=== PATIENT | female | born 1950 | race Caucasian/White ===

== ENCOUNTER 2022-05-03 11:25 | Inpatient (IN) | payer OTHER ==
[~2022-05-03] VITALS: Ht 162.6 cm; Wt 77.1 kg
[2022-05-03 11:29] VITALS: BP 136/82
--- NOTE | 2022-05-03 11:33 | NUR ---
BIBA BLS TO ER BED 7
[2022-05-03 12:10] LABS: BASOPHILS % (AUTO) 0.5 % (0.0-2.0); EOSINOPHILS # (AUTO) 0.1 K/uL (0-0.4); HEMOGLOBIN 14.3 g/dL (12.0-16.0); LYMPHOCYTES # (AUTO) 1.8 K/uL (2.5-16.5); MEAN CORPUSCULAR HEMOGLOBIN 30 pg (27-31); MEAN CORPUSCULAR HGB CONC 34 g/dL (33-37); MEAN CORPUSCULAR VOLUME 89.2 fL (80-94); MONOCYTES # (AUTO) 0.7 K/uL (0.8-1.0); MONOCYTES % (AUTO) 7.3 % (1.7-9.3); NEUTROPHILS # (AUTO) 7.3 K/uL (1.8-7.7); NEUTROPHILS % (AUTO) 73.2 % (42.2-75.2); PLATELET COUNT (AUTO) 226 K/uL (140-450); RED BLOOD CELL COUNT(AUTO) 4.71 MIL/uL (4.20-5.40); RED CELL DISTRIBUTION WIDTH 12.9 % (11.6-13.7)
[2022-05-03 12:34] LABS: ALBUMIN 3.8 g/dL (3.4-5.0); ANION GAP 11.2 (8-16); ASPARTATE AMINOTRANSFERASE 27 U/L (15-37); CARBON DIOXIDE 30.6 mmol/L (21-32); CHLORIDE 97 mmol/L (98-107); CREATININE 1.4 mg/dL (0.6-1.3); GFR ARICAN-AMERICAN 48 mL/min (>90); GLUCOSE 161 mg/dL (74-106); LIPASE 153 U/L (73-393); SODIUM SERUM 136 mmol/L (136-145); TOTAL BILIRUBIN 0.9 mg/dL (0.0-1.0); UREA NITROGEN, BLOOD 27 mg/dL (7-18)
[2022-05-03 12:45] LABS: POTASSIUM 2.8 mmol/L (3.5-5.1)
[2022-05-03 12:53] LABS: APPEARANCE,URINE HAZY (CLEAR); BILIRUBIN,URINE NEGATIVE (NEGATIVE); BLOOD, URINE NEGATIVE (NEGATIVE); COLOR,URINE YELLOW (YELLOW); LEUKOCYTE ESTERASE ,URINE TRACE (NEGATIVE); NITRITE, URINE NEGATIVE (NEGATIVE); UGLUCOSE NEGATIVE (NEGATIVE)
[2022-05-03] MEDS ORDERED: NACL 0.9% 1,000 ML IV ONE ×2 (13:00→13:40)
[2022-05-03] MEDS ORDERED: POTASSIUM CHLORIDE 10 MEQ TABER PO ONE ×2 (13:00)
[2022-05-03 13:02] LABS: RBC,URINE 0-5 /HPF (0-5); WBC,URINE 0-5 /HPF (0-5)
--- NOTE | 2022-05-03 13:13 | NUR ---
Pt taken to CT via rjr.
[2022-05-03] MEDS ORDERED: ATOR20TA40 PO (15:05)
[2022-05-03] MEDS ORDERED: CITA20TA15 PO (15:05)
[2022-05-03] MEDS ORDERED: AMLO5TAB PO (15:05)
[2022-05-03] MEDS ORDERED: SEMA2PEN SQ (15:15)
[2022-05-03] MEDS ORDERED: HYDR-4004 PO (15:15)
[2022-05-03] MEDS ORDERED: PRED10TA5 PO (15:15)
[2022-05-03] MEDS ORDERED: LOSA100T2 PO (15:15)
[2022-05-03] MEDS ORDERED: ESK300 PO (15:15)
[2022-05-03] MEDS ORDERED: METF-346 PO (15:15)
--- NOTE | 2022-05-03 16:43 | NUR ---
RECEIVED PT CARE AND REPORT FROM DANNY ER NURSE. PT WAS BROUGHT VIA GURNEY ACCOMPANIED BY DANNY AND TRACK SUPERVISOR. PT IS RESTING WITH OU CLOSED. DANNY STATED THAT PATIENT IS A&OX4, AMBULATORY WITH ASSIST. NO VISIBLE S/S OF DISTRESS, DISCOMFORT, PAIN OR SOB. PT PLACED IN BED AND TELE MONITOR PLACED WHILE I WAS NOT PRESENT. 174 PT FOUND IN HALLWAY STATING THAT SHE IS DIZZY. LAURIE AGUILAR ASSISTING PATIENT. PT APPEARS TO BE ALTERED BUT CALM. STATED THAT SHE IS DIZZY AND WANTS TO USE THE RESTROOM. A&OX2. PT GUIDED BACK TO ROOM AND ORIENTED TO RESTROOM AND CALL LIGHT. BEGAN ADMISSION PROCESS AND ORIENTED PATIENT TO ROOM. PT IS CALM AND COOPERATIVE AT THIS TIME. WILL CONTINUE TO MONITOR. BED ALARM SET.
--- NOTE | 2022-05-03 16:45 | NUR ---
Report given to receiving RN. VSS. Pt aware and agreeable to admission. Pt transported with belongings via gurney.
[2022-05-03 18:03] VITALS: BP 127/83
--- NOTE | 2022-05-03 18:42 | NUR ---
PT MOVED TABLE WITH DINNER TRAY TO HALLWAY. ESCORTED PATIENT BACK TO ROOM. PT STATED THAT SMELL OF FOOD MADE HER NAUSEOUS. REINFORCED CALL LIGHT USE WITH PATIENT FOR ANY NEEDS. CALL LIGHT LEFT WITHIN REACH OF PATIENT. EMESIS BAG PROVIDED FOR PATIENT. BED ALARM DID NOT GO OFF. TURNED ON ALARM AGAIN. PT IS RESTING WITH EYES CLOSED WITH NO S/S OF DISTRESS, DISCOMFORT, PAIN OR SOB. WILL CONTINUE TO MONITOR. WILL ENDORSE TO NOC SHIFT.
--- NOTE | 2022-05-03 19:15 | NUR ---
RECEIVED REPORT FROM DAY SHIFT RN FOR CONTINUITY OF CARE. PT IS CURRENTLY RESTING IN BED. NOT IN ANY DISTRESS. EDUCATED PT TO USE CALL LIGHT SYSTEM FOR ANY ASSISTANCE. POC DISCUSSED. WILL CONTINUE TO MONITOR THE PT.
[2022-05-04] VITALS: BP 140/81
[2022-05-04] MEDS ORDERED: ONDANSETRON 4 MG TAB PO PRN (01:10)
[2022-05-04] MEDS ORDERED: ONDANSETRON 4 MG TAB ONE (01:26)
--- NOTE | 2022-05-04 03:32 | NUR ---
OBSERVED PT. PT IS SLEEPING COMFORTABLY IN BED. PT NOT IN ANY DISTRESS. BREATHING EVEN AND UNLABORED. WILL CONTINUE TO MONITOR THE PT.
[2022-05-04 04:00] VITALS: BP 156/85
--- NOTE | 2022-05-04 05:33 | NUR ---
PT PULLED OUT IV. NEW IV INSERTED ON LEFT HAND 24 GAUGE. EDUCATED PT TO NOT TO PULL OUT IV AND TO TAKE CARE OF IT.
[2022-05-04 06:08] LABS: BASOPHILS # (AUTO) 0.1 K/uL (0.00-0.22); BASOPHILS % (AUTO) 0.7 % (0.0-2.0); EOSINOPHILS # (AUTO) 0.2 K/uL (0-0.4); EOSINOPHILS % (AUTO) 2.1 % (0.0-4.0); HEMOGLOBIN 14.1 g/dL (12.0-16.0); LYMPHOCYTES # (AUTO) 2.6 K/uL (2.5-16.5); LYMPHOCYTES % (AUTO) 23.6 % (20.5-51.1); MEAN CORPUSCULAR HEMOGLOBIN 30 pg (27-31); MEAN CORPUSCULAR HGB CONC 34 g/dL (33-37); MEAN CORPUSCULAR VOLUME 88.5 fL (80-94); MONOCYTES # (AUTO) 0.9 K/uL (0.8-1.0); MONOCYTES % (AUTO) 8.4 % (1.7-9.3); NEUTROPHILS # (AUTO) 7.2 K/uL (1.8-7.7); NEUTROPHILS % (AUTO) 65.2 % (42.2-75.2); PLATELET COUNT (AUTO) 231 K/uL (140-450); RED BLOOD CELL COUNT(AUTO) 4.75 MIL/uL (4.20-5.40); RED CELL DISTRIBUTION WIDTH 13.2 % (11.6-13.7); WHITE BLOOD COUNT (AUTO) 11.1 K/uL (4.8-10.8)
[2022-05-04 06:22] LABS: ANION GAP 12.8 (8-16); CARBON DIOXIDE 28.1 mmol/L (21-32); CREATININE 1.1 mg/dL (0.6-1.3)
[2022-05-04 06:30] LABS: POTASSIUM 2.9 mmol/L (3.5-5.1)
--- NOTE | 2022-05-04 07:13 | NUR ---
ENDORSED PT TO DAY SHIFT RN FOR CONTINUITY OF CARE. PT IS STABLE.
--- NOTE | 2022-05-04 07:19 | NUR ---
RECEIVED REPORT FROM DEVICE TEST ENGINEER NURSE FOR CONTINUITY OF CARE, PT SITTING UP ON SIDE OF THE BED WITH NO S/S OF DISTRESS. NO COMPLAINTS AT THIS TIME, CALL LIGHT WITHIN REACH. ALL SAFETY MEASURES IN PLACE.
[2022-05-04] MEDS ORDERED: POTASSIUM CHLORIDE 10 MEQ TABER PO SCH (07:34)
--- NOTE | 2022-05-04 07:35 | NUR ---
RECEIVED TORB FROM DR DOWNS FOR POTASSIUM LEVEL OF 2.9, FILM PROJECTOR OPERATOR RN, RIKKI, NOTIFIED OF CRITICAL AT 0634.
[2022-05-04 08:00] VITALS: BP 127/61
[2022-05-04] MEDS: KCL 20 MEQ IN 100 mL PREMIX 200 ML IV SCH ×2 (08:26→11:57)
[2022-05-04] MEDS ORDERED: DEXTROSE 50% 50 ML SYR IVP PRN ×2 (08:30→10:20)
--- NOTE | 2022-05-04 08:48 | NUR ---
PATIENT HAS BEEN SCREENED AND CATEGORIZED HIGH NUTRITION RISK. PATIENT WILL BE SEEN WITHIN 1-2 DAYS OF ADMISSION. 05/04/ [facility] REFERRAL RECEIVED FOR "VOMITING >3 DAYS" ON 05/04/22. REVIEWED BY SARIKA YOUNG RD
[2022-05-04] MEDS ORDERED: ACETAMINOPHEN 325 MG TAB PO PRN (10:20)
[2022-05-04] MEDS ORDERED: INSULIN LISPRO SLIDING SCALE 100 UNITS/ML VIAL SUBQ PRN (10:20)
[2022-05-04] MEDS ORDERED: HYDROcodone/APAP 7.5/325 MG 1 TAB PO PRN (10:20)
[2022-05-04] MEDS ORDERED: ONDANSETRON 4 MG/2 ML VIAL IVP PRN (10:20)
[2022-05-04] MEDS: NACL 0.9% 1,000 ML IV SCH (10:34)
[2022-05-04] MEDS ORDERED: BLOOD GLUCOSE MONITORING 1 DEV DEV FS SCH (11:30)
[2022-05-04] MEDS: BLOOD GLUCOSE MONITORING 1 DEV DEV FS SCH ×3 (11:54→20:34)
[2022-05-04 12:00] VITALS: BP 110/79
[2022-05-04 12:06] LABS: BASOPHILS % (AUTO) 0.5 % (0.0-2.0); EOSINOPHILS # (AUTO) 0.2 K/uL (0-0.4); EOSINOPHILS % (AUTO) 2.1 % (0.0-4.0); HEMATOCRIT 41.1 % (36-48); HEMOGLOBIN 13.6 g/dL (12.0-16.0); LYMPHOCYTES # (AUTO) 1.6 K/uL (2.5-16.5); LYMPHOCYTES % (AUTO) 18.5 % (20.5-51.1); MEAN CORPUSCULAR HEMOGLOBIN 30 pg (27-31); MEAN CORPUSCULAR HGB CONC 33 g/dL (33-37); MEAN CORPUSCULAR VOLUME 89.6 fL (80-94); MONOCYTES # (AUTO) 0.8 K/uL (0.8-1.0); MONOCYTES % (AUTO) 8.8 % (1.7-9.3); NEUTROPHILS # (AUTO) 6.2 K/uL (1.8-7.7); NEUTROPHILS % (AUTO) 70.1 % (42.2-75.2); PLATELET COUNT (AUTO) 216 K/uL (140-450); RED BLOOD CELL COUNT(AUTO) 4.58 MIL/uL (4.20-5.40); WHITE BLOOD COUNT (AUTO) 8.9 K/uL (4.8-10.8)
[2022-05-04 12:29] LABS: ANION GAP 12.3 (8-16); CARBON DIOXIDE 30.1 mmol/L (21-32); CREATININE 1.1 mg/dL (0.6-1.3); POTASSIUM 3.4 mmol/L (3.5-5.1)
[2022-05-04 12:30] LABS: PROTHROMBIN TIME 10.7 secs (10.8-13.4)
[2022-05-04 12:36] LABS: CHOL/HDL RATIO 1.8 (1-4.5); FREE T4 (FREE THYROXINE) 0.98 ng/dL (0.76-1.46); MAGNESIUM 1.8 mg/dL (1.8-2.4); PHOSPHORUS 2.8 mg/dL (2.5-4.9); THYROID STIMULATING HORMONE 3.31 uIU/mL (0.34-3.74)
--- NOTE | 2022-05-04 15:55 | NUR ---
REITERATED IMPORTANCE OF COLLECTION OF A URINE SAMPLE. SAMPLE CUP IN THE BATHROOM. MEAT SOAKER ALSO AWARE
[2022-05-04 16:00] VITALS: BP 130/64
--- NOTE | 2022-05-04 16:47 | NUR ---
05/04/22 RD INITIAL ASSESSMENT COMPLETED PLEASE REFER TO NUTRITION ASSESSMENT UNDER CARE ACTIVITY FOR ESTIMATED NUTRITIONAL NEEDS. 1. CONTINUE [id number] DIET TOLERATED 2. PROVIDED NUTRITION EDUCATION WITH HANDOUTS FOR DM 3. RD TO FOLLOW-UP 7 DAYS, LOW RISK REVIEWED BY SARIKA YOUNG RD
[2022-05-04] MEDS: metFORMIN 500 MG TAB PO SCH (17:32)
--- NOTE | 2022-05-04 18:02 | NUR ---
CALLED [facility] REGARDING PTS REQUEST FOR DIET SPRITE FOR NAUSEA AT DINNER.
--- NOTE | 2022-05-04 18:43 | NUR ---
ALL NEEDS HAVE BEEN MET THROUGHOUT THE SHIFT.
--- NOTE | 2022-05-04 19:30 | NUR ---
RECEIVED REPORT FROM DAY SHIFT RN FOR CONTINUITY OF CARE. PT IS AWAKE AND ALERT. PT NOT IN ANY DISTRESS. RESTING IN BED. POC DISCUSSED. WILL CONTINUE TO MONITOR THE PT.
[2022-05-04 20:00] VITALS: BP 126/67
[2022-05-04] MEDS: DOCUSATE SODIUM 100 MG GELCAP PO SCH (20:34)
--- NOTE | 2022-05-04 22:30 | NUR ---
PT ACCIDENTLY PULLED IV OUT. CATHETER INTACT. PT REFUSES A NEW IV INSERTION AND WANTS TO WAIT UNTIL MORNING. ALSO, PT PULLED OUT ID BAND FROM WRIST. STATES IT IS BOTHERING HER.
[2022-05-04 23:44] LABS: BARBITURATE, URINE NEGATIVE ng/ml (NEG <=200); BENZODIAZEPINE, URINE NEGATIVE ng/mL (NEG <=200); CANNABINOID, URINE NEGATIVE ng/mL (NEG <=50); COCAINE, URINE NEGATIVE ng/mL (NEG <=300); OPIATE, URINE NEGATIVE ng/mL (NEG <=2000); PHENCYCLIDINE SCREEN,URINE NEGATIVE ng/mL (NEG <=25)
[2022-05-05] VITALS: BP 117/65
--- NOTE | 2022-05-05 00:25 | NUR ---
PT IS SLEEPING COMFORTABLY IN BED. NOT IN ANY DISTRESS. BREATHING EVEN AND UNLABORED. WILL CONTINUE TO MONITOR THE PT.
[2022-05-05 04:00] VITALS: BP 140/76
--- NOTE | 2022-05-05 04:00 | NUR ---
PT STILL REFUSING FOR NEW IV. PT WANTS IT TO BE DONE LATER IN THE DAY.
[2022-05-05 06:05] LABS: BASOPHILS # (AUTO) 0.1 K/uL (0.00-0.22); BASOPHILS % (AUTO) 0.7 % (0.0-2.0); EOSINOPHILS # (AUTO) 0.3 K/uL (0-0.4); EOSINOPHILS % (AUTO) 2.7 % (0.0-4.0); HEMATOCRIT 40.8 % (36-48); HEMOGLOBIN 13.4 g/dL (12.0-16.0); LYMPHOCYTES % (AUTO) 21.2 % (20.5-51.1); MEAN CORPUSCULAR HEMOGLOBIN 30 pg (27-31); MEAN CORPUSCULAR HGB CONC 33 g/dL (33-37); MONOCYTES # (AUTO) 0.9 K/uL (0.8-1.0); MONOCYTES % (AUTO) 9.1 % (1.7-9.3); NEUTROPHILS # (AUTO) 6.2 K/uL (1.8-7.7); NEUTROPHILS % (AUTO) 66.3 % (42.2-75.2); PLATELET COUNT (AUTO) 212 K/uL (140-450); RED BLOOD CELL COUNT(AUTO) 4.54 MIL/uL (4.20-5.40); WHITE BLOOD COUNT (AUTO) 9.4 K/uL (4.8-10.8)
[2022-05-05] MEDS: NACL 0.9% 1,000 ML IV SCH (06:20)
[2022-05-05 06:30] LABS: ANION GAP 9.7 (8-16); CARBON DIOXIDE 31.9 mmol/L (21-32); CREATININE 1.1 mg/dL (0.6-1.3); POTASSIUM 3.6 mmol/L (3.5-5.1)
[2022-05-05 06:54] LABS: MAGNESIUM 1.8 mg/dL (1.8-2.4); PHOSPHORUS 2.5 mg/dL (2.5-4.9)
--- NOTE | 2022-05-05 07:10 | NUR ---
RECEIVED REPORT FROM SENIOR RESERVATIONS AGENT NURSE FOR CONTINUITY OF CARE. PT WAS ASLEEP AND STABLE.
--- NOTE | 2022-05-05 07:10 | NUR ---
ENDORSED PT TO DAY SHIFT RN FOR CONTINUITY OF CARE. PT IS STABLE.
[2022-05-05 08:00] VITALS: BP 145/70
[2022-05-05] MEDS: BLOOD GLUCOSE MONITORING 1 DEV DEV FS SCH ×4 (08:04→20:47)
[2022-05-05] MEDS: metFORMIN 500 MG TAB PO SCH ×2 (08:07→17:00)
[2022-05-05] MEDS ORDERED: LITHIUM CARBONATE 300 MG TAB PO SCH (09:00)
[2022-05-05] MEDS: PANTOPRAZOLE 40 MG INJ VIAL IVP SCH (09:00)
[2022-05-05] MEDS: CITALOPRAM 20 MG TAB PO SCH (09:41)
[2022-05-05] MEDS: LOSARTAN 50 MG TAB PO SCH (09:42)
[2022-05-05] MEDS: amLODIPine 5 MG TAB PO SCH (09:42)
[2022-05-05] MEDS: ATORVASTATIN 20 MG TAB PO SCH (09:42)
[2022-05-05] MEDS: hydroCHLOROthiazide 25 MG TAB PO SCH (09:42)
[2022-05-05] MEDS: DOCUSATE SODIUM 100 MG GELCAP PO SCH ×2 (09:42→20:46)
--- NOTE | 2022-05-05 11:23 | NUR ---
SCREEN FOR LOW RBUNA SCALE AT RISK, CONTINUE TO FOLLOW PRESSURE ULCER PREVENTION INTERVENTIONS. -TURN AND REPOSITION PATIENT Q 2H, ASSIST IF NEEDED -ASSESS AND MONITOR SKIN CONDITION DURING POSITION CHANGES -OFFLOAD BILATERAL HEELS BY PLACING PILLOWS UNDER CALVES AT ALL TIMES, UNLESS OTHERWISE CONTRAINDICATED -PRESSURE REDISTRIBUTION BY PLACING PILLOWS AND OFFLOADING SACRALCOCCYX -KEEP SKIN CLEAN AND DRY AT ALL TIMES.
[2022-05-05 12:00] VITALS: BP 113/85
--- NOTE | 2022-05-05 14:04 | NUR ---
P.T. NOTES P.T. EVAL COMPLETED; REFER TO EVAL FOR DETAILS.
[2022-05-05 16:00] VITALS: BP 110/60
--- NOTE | 2022-05-05 19:20 | NUR ---
PATIENT SEEN LYING IN BED ASLEEP. ENDORSED PATIENT TO PM NURSE FOR CONTINUITY OF CARE.
--- NOTE | 2022-05-05 19:30 | NUR ---
RECEIVED REPORT FROM DAY SHIFT RN. PT IS AWAKE AND ALERT. NOT IN ANY DISTRESS. PT CURRENTLY HAS NO IV. POC DISCUSSED. WILL CONTINUE TO MONITOR THE PT.
[2022-05-05 20:00] VITALS: BP 129/75
[2022-05-05] MEDS: INSULIN LISPRO SLIDING SCALE 100 UNITS/ML VIAL SUBQ PRN (20:47)
--- NOTE | 2022-05-05 22:00 | NUR ---
NEW IV INSERTED ON LEFT HAND 24 GAUGE. IVF RUNNING PER MD ORDER.
[2022-05-06] VITALS: BP 113/67
--- NOTE | 2022-05-06 | NUR ---
PT WANTED TO TAKE OFF IVF TO USE RESTROOM. PT REFUSED TO HAVE IT CONNECTED AGAIN.
[2022-05-06] MEDS: NACL 0.9% 1,000 ML IV SCH ×2 (02:20→22:20)
[2022-05-06 04:00] VITALS: BP 140/72
--- NOTE | 2022-05-06 04:30 | NUR ---
PT IS SLEEPING COMFORTABLY IN BED. PT NOT IN ANY DISTRESS. BREATHING EVEN AND UNLABORED. WILL CONTINUE TO MONITOR THE PT.
[2022-05-06] MEDS: BLOOD GLUCOSE MONITORING 1 DEV DEV FS SCH ×4 (06:43→21:55)
--- NOTE | 2022-05-06 07:12 | NUR ---
ENDORSED PT TO DAY SHIFT RN FOR CONTINUITY OF CARE. PT IS STABLE.
[2022-05-06 08:00] VITALS: BP 113/67
[2022-05-06] MEDS: metFORMIN 500 MG TAB PO SCH ×2 (08:00→17:00)
[2022-05-06 08:48] LABS: BASOPHILS # (AUTO) 0.1 K/uL (0.00-0.22); BASOPHILS % (AUTO) 0.6 % (0.0-2.0); EOSINOPHILS # (AUTO) 0.2 K/uL (0-0.4); EOSINOPHILS % (AUTO) 2.8 % (0.0-4.0); HEMATOCRIT 41.7 % (36-48); HEMOGLOBIN 13.8 g/dL (12.0-16.0); LYMPHOCYTES # (AUTO) 2.1 K/uL (2.5-16.5); LYMPHOCYTES % (AUTO) 23.7 % (20.5-51.1); MEAN CORPUSCULAR HEMOGLOBIN 30 pg (27-31); MEAN CORPUSCULAR HGB CONC 33 g/dL (33-37); MEAN CORPUSCULAR VOLUME 89.2 fL (80-94); MONOCYTES # (AUTO) 0.7 K/uL (0.8-1.0); MONOCYTES % (AUTO) 7.6 % (1.7-9.3); NEUTROPHILS # (AUTO) 5.7 K/uL (1.8-7.7); NEUTROPHILS % (AUTO) 65.3 % (42.2-75.2); PLATELET COUNT (AUTO) 218 K/uL (140-450); RED BLOOD CELL COUNT(AUTO) 4.67 MIL/uL (4.20-5.40); WHITE BLOOD COUNT (AUTO) 8.7 K/uL (4.8-10.8)
[2022-05-06 08:51] LABS: MAGNESIUM 1.8 mg/dL (1.8-2.4); PHOSPHORUS 2.6 mg/dL (2.5-4.9)
[2022-05-06 09:07] LABS: ANION GAP 12.4 (8-16); CARBON DIOXIDE 28.6 mmol/L (21-32); CREATININE 1.1 mg/dL (0.6-1.3)
[2022-05-06] MEDS: PANTOPRAZOLE 40 MG INJ VIAL IVP SCH (09:36)
[2022-05-06] MEDS: DOCUSATE SODIUM 100 MG GELCAP PO SCH ×2 (09:42→21:57)
[2022-05-06] MEDS: CITALOPRAM 20 MG TAB PO SCH (09:42)
[2022-05-06] MEDS: LOSARTAN 50 MG TAB PO SCH (09:44)
[2022-05-06] MEDS: ATORVASTATIN 20 MG TAB PO SCH (09:46)
[2022-05-06] MEDS: amLODIPine 5 MG TAB PO SCH (09:48)
[2022-05-06] MEDS: hydroCHLOROthiazide 25 MG TAB PO SCH (09:49)
[2022-05-06 12:00] VITALS: BP 113/85
[2022-05-06 16:00] VITALS: BP 110/60
[2022-05-06] MEDS ORDERED: KCL 20 MEQ IN 100 mL PREMIX 200 ML IV ONE (18:30)
--- NOTE | 2022-05-06 19:18 | NUR ---
RECSABINOVED PT FROM RENATE RICHARDS - PT NO IV SITE . Addendum: 05/07/22 at 0334 by Janny Rock RN AT 1917 - REVIEWED THE EMAR - THER IS PENDING Margarito AYALA - WILL RE INSERT THE IV NEEDLE .
[2022-05-06 20:00] VITALS: BP 128/80
--- NOTE | 2022-05-06 20:00 | NUR ---
TRIED TO RE INSERT THE IV NEEDLE - AFTER 2 ATTEMPT ON LEFT AND RIGHT HAND - IT FAILED - WILL TRY AGAIN LATTER .
--- NOTE | 2022-05-06 22:00 | NUR ---
VASU DUNCAN TRIED RE INSERT THE NEW IV NEEDLE , BUT AFTER 2 ATTEMPT - FAILED , WILL TRY AGAIN Addendum: 05/07/22 at 0340 by Janny Rock RN [id number] IV NEEDLE INSERTED BY VASU MEYER , MIN. BLEEDING , PROCEDURE TOLERATED BY PT . WILL CONT. TO MONITOR
[2022-05-07] VITALS: BP 124/75
[2022-05-07] MEDS ORDERED: LORazepam 2 MG/ML VIAL IVP PRN
--- NOTE | 2022-05-07 00:40 | NUR ---
PT KEEPS TELLING HER SON KICK HER OUT FROM THE HOUSE , PT REQUESTING MEDICINE THAT WILL MAKES HER TO RELAX . - WILL REFER TO DR. DOWNS
[2022-05-07 04:00] VITALS: BP 112/60
--- NOTE | 2022-05-07 04:30 | NUR ---
ROUNDS , FOUND PT'S IV NEEDLE OUT , WHEN I ASKING PT HER IV NEEDLE IS OUT AND NEEDS TO RE INSERT AGAIN , SHE SAID YES I PULL IT OUT , THEN REMINDS HER FOR IV REINSERTION - SHE SAID I DONT LIKE IT ANYMORE , I DONT LIKE ANY NEEDLE POKE ANYMORE ITS HURT . - WILL ENDORSE Addendum: 05/07/22 at 1441 by Janny Rock RN AT 4:30 AM INFORM CHARGE NURSE PT IS REFUSED IV RE INSERTION .
[2022-05-07] MEDS: BLOOD GLUCOSE MONITORING 1 DEV DEV FS SCH ×4 (06:17→20:09)
--- NOTE | 2022-05-07 06:40 | NUR ---
encourages the pt for re insertion again she is not much drink and ate - pt agree at this time .
--- NOTE | 2022-05-07 06:43 | NUR ---
ASSISTING PT TO THE REST ROOM , VOIDED FREELY , CHANGED GOWN AND NEW UNDERWEAR , PT REQUESTING SHOWER AFTER BREAKFAST - WILL ENDORSE
--- NOTE | 2022-05-07 06:45 | NUR ---
when i inserting the iv the pt . suddenly pull out the hand , and she said stop and she dont like it anymore . then she said let other try latter . - will endorse .
--- NOTE | 2022-05-07 06:50 | NUR ---
REFUSED SHAY;OG - SHE SAID I DON'T LIKE IT .- WILL ENDORSE - GOMEZ 158 Addendum: 05/07/22 at 0651 by Janny Rock RN THE WORD BECKI;LOG IN THE ABOVE NURSE'S NOTE IS AN ERROR ENTRY , INSTEAD OF HUMALOG
--- NOTE | 2022-05-07 07:50 | NUR ---
endorsed pt for cont. of care , i endorsed to analy gabriel pt is no iv site because when changed her mind on the time inserting it , and she expressed to me she don't like it anymore .
[2022-05-07 08:01] LABS: BASOPHILS % (AUTO) 0.5 % (0.0-2.0); EOSINOPHILS # (AUTO) 0.2 K/uL (0-0.4); EOSINOPHILS % (AUTO) 2.6 % (0.0-4.0); HEMATOCRIT 41.3 % (36-48); HEMOGLOBIN 13.8 g/dL (12.0-16.0); LYMPHOCYTES # (AUTO) 2.2 K/uL (2.5-16.5); LYMPHOCYTES % (AUTO) 24.8 % (20.5-51.1); MEAN CORPUSCULAR HEMOGLOBIN 30 pg (27-31); MEAN CORPUSCULAR HGB CONC 33 g/dL (33-37); MEAN CORPUSCULAR VOLUME 89.3 fL (80-94); MONOCYTES # (AUTO) 0.7 K/uL (0.8-1.0); MONOCYTES % (AUTO) 8.1 % (1.7-9.3); NEUTROPHILS # (AUTO) 5.7 K/uL (1.8-7.7); PLATELET COUNT (AUTO) 217 K/uL (140-450); RED BLOOD CELL COUNT(AUTO) 4.62 MIL/uL (4.20-5.40); RED CELL DISTRIBUTION WIDTH 12.9 % (11.6-13.7); WHITE BLOOD COUNT (AUTO) 8.9 K/uL (4.8-10.8)
[2022-05-07 08:15] LABS: ANION GAP 10.9 (8-16); CARBON DIOXIDE 29.4 mmol/L (21-32); CREATININE 1.2 mg/dL (0.6-1.3); POTASSIUM 3.3 mmol/L (3.5-5.1)
[2022-05-07 08:32] LABS: MAGNESIUM 1.8 mg/dL (1.8-2.4); PHOSPHORUS 2.7 mg/dL (2.5-4.9)
[2022-05-07 09:25] VITALS: BP 127/60
[2022-05-07] MEDS: PANTOPRAZOLE 40 MG INJ VIAL IVP SCH (09:25)
[2022-05-07] MEDS: DOCUSATE SODIUM 100 MG GELCAP PO SCH ×2 (09:28→20:12)
[2022-05-07] MEDS: metFORMIN 500 MG TAB PO SCH ×2 (09:29→17:21)
[2022-05-07] MEDS: ATORVASTATIN 20 MG TAB PO SCH (09:29)
[2022-05-07] MEDS: amLODIPine 5 MG TAB PO SCH (09:29)
[2022-05-07] MEDS: CITALOPRAM 20 MG TAB PO SCH (09:29)
[2022-05-07] MEDS: LOSARTAN 50 MG TAB PO SCH (09:29)
[2022-05-07] MEDS: hydroCHLOROthiazide 25 MG TAB PO SCH (09:30)
[2022-05-07] MEDS: INSULIN LISPRO SLIDING SCALE 100 UNITS/ML VIAL SUBQ PRN ×2 (11:56→17:19)
[2022-05-07 11:57] VITALS: BP 132/78
--- NOTE | 2022-05-07 14:42 | NUR ---
RECEIVED ORDER TO START THE PROCESS FOR SNF PLACEMENT FOR PT. FAXED SNF PACKET TO CONTRACTED FACILITIES: [facility] AND [facility]. WILL FOLLOW UP WITH ACCEPTING FACILITIES. Addendum: 05/07/22 at 1608 by SALTY HOLGUIN CM FAXED TO THREE MORE FACILITIES: [employer], [facility] [employer] [facility], [facility]. [facility] DENIED PATIENT. WILL FOLLOW UP WITH ACCEPTING AND DECLINING FACILITIES. Addendum: 05/08/22 at 1355 by Belkis Cobb CM 1110: REACHED OUT TO [facility] AT [phone] FOR ADMISSION CONSIDERATION. [facility] STATED TO SEND OVER CLINICALS FOR THEM TO REVIEW. INQUIRY SENT. [id number]: RECEIVED A CALL BACK FROM [facility] STATING THAT THEY ARE ABLE TO ACCEPT THE PATIENT. PATIENT CAN GO TO ROOM [address] UNDER DR. LOVE. [facility] IS REQUESTING [facility] FROM [facility]. LEFT MESSAGE TO MARLIN CLOUD AT [facility] [phone]. WILL FOLLOW UP. Addendum: 05/08/22 at 1507 by SALTY HOLGUIN CM PT WAS ACCEPTED AT [facility] LOCATED AT [address] [address]. PATIENT WILL WE GOING TO ROOM [address] UNDER DR LOVE. TRANSPORTATION SET UP WITH [facility] [phone] WITH A GUSSET RIPPER TIME BETWEEN [phone]. HOSPITAL WILL BE BILLED FOR THIS TRANSPORTATION. NURSE CHAVEZ AND SON YORDAN AWARE OF THE ABOVE INFORMATION.
[2022-05-07] MEDS: NACL 0.9% 1,000 ML IV SCH (18:20)
--- NOTE | 2022-05-07 19:32 | NUR ---
RECEIVED REPORT FROM DAY SHIFT NURSE FOR CONTINUITY OF CARE. PT IS AWAKE, ALERT AND ORIENTED X3. WAS FOUND ROAMING THE HALLWAY LOOKING FOR THE BATHROOM. REORIENTED PT TO BEDROOM AND BATHROOM. PT IS ON ROOM AIR WITH NO SIGNS OF DISTRESS NOTED. PT HAS STATED NO PAIN AT THIS TIME. SKIN IS INTACT. NO IV SITE PRESENT. PT STATES SHE DOES NOT ONE ANOTHER ONE INSERTED. SAFETY MEASURES IN PLACE, WILL MONITOR CLOSELY.
[2022-05-07 20:00] VITALS: BP 142/87
--- NOTE | 2022-05-07 20:00 | NUR ---
Patient's Plan of Care was discussed and reviewed with UNIT CONTROLLER: PRABHA ELLISON
[2022-05-07] MEDS ORDERED: MELATONIN 3 MG TAB PO PRN (21:15)
--- NOTE | 2022-05-07 22:26 | NUR ---
PT HAVING DIFFICULTY SLEEPING. MASH PROCESSING OPERATOR DR WAS CONTACTED, ORDER FOR MELATONIN 9MG WAS PLACED AND ADMINISTERED WITH NO COMPLICATIONS. WILL CONTINUE TO MONITOR.
[2022-05-07] MEDS ORDERED: LORazepam 0.5 MG TAB PO PRN (22:35)
--- NOTE | 2022-05-07 23:04 | NUR ---
PT HAS BECOME VERY AGITATED AND ANXIOUS DUE TO NOT BEING ABLE TO SLEEP. STILL REFUSING ANY IV INSERTION AND HAS REFUSED ATIVAN IM. DR WAS CONTACTED AND AN ORDER FOR ATIVAN 0.5 MG PO WAS PLACED AND ADMINISTERED. WILL CONTINUE CLOSELY MONITORING THE PT.
[2022-05-08] VITALS: BP 119/69
--- NOTE | 2022-05-08 02:07 | NUR ---
PT STILL RESTLESS. GETTING OUT OF BED MULTIPLE TIMES ATTEMPTING TO WALK THE HALLWAYS. SHE HAS STATED SHE DOES NOT WANT THE TELE MONITOR CONNECTED TO HER ANYMORE. PT REMOVED NURSERY WORKER AND IS REFUSING IT BE PUT BACK ON. WILL CONTINUE TO MONITOR.
[2022-05-08 04:00] VITALS: BP 111/65
--- NOTE | 2022-05-08 06:23 | NUR ---
PT IN AND OUT OF SLEEP DURING NIGHT. POSSIBLE DC TO SNF TODAY. WILL ENDORSE TO DAY SHIFT NURSE. PT STABLE AT THIS TIME.
[2022-05-08] MEDS: BLOOD GLUCOSE MONITORING 1 DEV DEV FS SCH ×2 (07:04→11:52)
[2022-05-08 07:21] LABS: BASOPHILS # (AUTO) 0.1 K/uL (0.00-0.22); BASOPHILS % (AUTO) 0.7 % (0.0-2.0); EOSINOPHILS # (AUTO) 0.3 K/uL (0-0.4); EOSINOPHILS % (AUTO) 3.1 % (0.0-4.0); HEMATOCRIT 40.1 % (36-48); HEMOGLOBIN 13.6 g/dL (12.0-16.0); LYMPHOCYTES # (AUTO) 2.2 K/uL (2.5-16.5); LYMPHOCYTES % (AUTO) 25.9 % (20.5-51.1); MEAN CORPUSCULAR HEMOGLOBIN 30 pg (27-31); MEAN CORPUSCULAR HGB CONC 34 g/dL (33-37); MEAN CORPUSCULAR VOLUME 88.1 fL (80-94); MONOCYTES # (AUTO) 0.8 K/uL (0.8-1.0); MONOCYTES % (AUTO) 9.6 % (1.7-9.3); NEUTROPHILS # (AUTO) 5.2 K/uL (1.8-7.7); NEUTROPHILS % (AUTO) 60.7 % (42.2-75.2); PLATELET COUNT (AUTO) 219 K/uL (140-450); RED BLOOD CELL COUNT(AUTO) 4.55 MIL/uL (4.20-5.40); RED CELL DISTRIBUTION WIDTH 12.9 % (11.6-13.7); WHITE BLOOD COUNT (AUTO) 8.6 K/uL (4.8-10.8)
[2022-05-08 07:32] LABS: ANION GAP 11.9 (8-16); CARBON DIOXIDE 29.1 mmol/L (21-32); CREATININE 1.2 mg/dL (0.6-1.3)
[2022-05-08 07:43] LABS: MAGNESIUM 1.6 mg/dL (1.8-2.4); PHOSPHORUS 3.2 mg/dL (2.5-4.9)
[2022-05-08 08:00] VITALS: BP 147/78
[2022-05-08] MEDS: metFORMIN 500 MG TAB PO SCH (08:22)
[2022-05-08] MEDS ORDERED: POTASSIUM CHLORIDE 10 MEQ TABER PO SCH (09:00)
[2022-05-08] MEDS: PANTOPRAZOLE 40 MG INJ VIAL IVP SCH (09:00)
[2022-05-08] MEDS: ATORVASTATIN 20 MG TAB PO SCH (09:07)
[2022-05-08] MEDS: DOCUSATE SODIUM 100 MG GELCAP PO SCH (09:07)
[2022-05-08] MEDS: hydroCHLOROthiazide 25 MG TAB PO SCH (09:07)
[2022-05-08] MEDS: CITALOPRAM 20 MG TAB PO SCH (09:08)
[2022-05-08] MEDS: amLODIPine 5 MG TAB PO SCH (09:08)
[2022-05-08] MEDS: LOSARTAN 50 MG TAB PO SCH (09:08)
[2022-05-08] MEDS ORDERED: MAG SULF 2000 MG/WATER PREMIX 50 ML IV SCH (10:10)
[2022-05-08] MEDS: INSULIN LISPRO SLIDING SCALE 100 UNITS/ML VIAL SUBQ PRN (11:53)
[2022-05-08 12:00] VITALS: BP 132/77
--- NOTE | 2022-05-08 15:40 | NUR ---
PT IS STABLE, AWAKE, AOX4, NO SIGNS OF DISTRESS, NO REPORTS OF PAIN. PT EDUCATED ON DISCHARGE, VERBALIZED UNDERSTANDING. NO IV IN PLACE TO REMOVE. PT BELONGINGS GATHERED AND GIVEN TO PT. NO FURTHER NEEDS ARE TO BE MET AT THIS TIME. PT IS LEAVING VIA [employer] AT 1540.
--- NOTE | 2022-05-08 16:25 | NUR ---
PHYSICAL THERAPY CO-SIGN The Physical Therapy Progress Notes documented by Administrative Aide have been reviewed. Reviewed/Co-Signed by: Arcelia [place] PT Documentation Done by:WHIT CRUZ COMMUNICATIONS MAINTAINER Addendum: 05/08/22 at 1625 by Arcelia Canaad PT Amended: Links added.
== END 2022-05-08 15:50 | DRG 73 ==
LOC: MED 11:25 → MTU 13:39
DX: E11.43 Type 2 diabetes mellitus with diabetic autonomic (poly)neuropathy (principal); G93.41 Metabolic encephalopathy; N39.0 Urinary tract infection, site not specified; I10 Essential (primary) hypertension; E78.5 Hyperlipidemia, unspecified; K31.84 Gastroparesis; M47.896 Other spondylosis, lumbar region; F32.9 Major depressive disorder, single episode, unspecified; Z20.822 Contact with and (suspected) exposure to COVID-19; E87.6 Hypokalemia
CPT/HCPCS: 36415; 80048; 80053; 80178; 80305; 81001; 82140; 82150; 82948; 83036; 83605; 83690; 83735; 83880; 84100; 84439; 84443; 84484; 85025; 85610; 85730; 87040; 87081; 87086; 93005; 97116; 97163-GP; 97530; 99285; C9113; J2060; J3480; Q0162; Q9967